=== PATIENT | male | born 1955 | race Caucasian/White ===

== ENCOUNTER 2016-11-14 06:17 | Outpatient (CLI) | payer BC ==
[~2016-11-14] VITALS: Ht 177.8 cm; Wt 85.9 kg
[2016-11-14 06:56] LABS: BASOPHILS 0.3 % (0-2); EOSINOPHILS 0.5 % (0-7); HEMATOCRIT 45.9 % (42.0-54.0); HEMOGLOBIN 16.4 g/dL (13.5-17.5); IMMATURE GRANULOCYTES 0.1 % (0-5); LYMPHOCYTES 19.5 % (15-50); MCH 37.2 pg (26.0-34.0); MCHC 35.7 g/dL (31.0-37.0); MCV 104.1 fL (80.0-100.0); MEAN PLATELET VOLUME 11.3 fL (7.4-10.4); MONOCYTES 10.8 % (2-11); NEUTROPHILS 68.8 % (40-80); RBC 4.41 10x6/uL (4.20-6.10); RDW 12.6 % (11.5-14.5); WBC 7.5 10x3/uL (4.8-10.8)
[2016-11-14 07:09] LABS: PLATELET COUNT 68 10x3/uL (130-400)
[2016-11-14] MEDS ORDERED: ZYLOPRIM100 MG PO (07:12)
[2016-11-14] MEDS ORDERED: MELATONIN10 M1 PO (07:13)
[2016-11-14] MEDS ORDERED: CHILDREN'S12.5 MG/3 PO (07:13)
[2016-11-14 07:22] VITALS: BP 132/87; Ht 177.8 cm; Wt 85.9 kg
[2016-11-14 07:30] LABS: APTT 29.2 SECONDS (22.8-39.4); INR 1.11 (0.85-1.17); PROTIME 14.2 SECONDS (11.6-15.0)
[2016-11-14 07:41] LABS: ANION GAP 12.5 mmol/L (8-16); CALCIUM 9.9 mg/dL (8.5-10.1); CARBON DIOXIDE 27.9 mmol/L (21.0-32.0); CREATININE - SERUM 1.1 mg/dL (0.6-1.3); POTASSIUM - SERUM 3.4 mmol/L (3.5-5.1)
[2016-11-14 08:22] LABS: PLATELET ESTIMATE DECREASED
--- NOTE | 2016-11-14 11:05 | NUR ---
1015 IV DC WITH CATHER TIP INTACT VS TAKEN AND PLACED ON POSTOP SHEET
== END 2016-11-14 10:30 | disposition home or self-care (01) ==
LOC: D.OPS 06:17 → D.CT 09:00 → D.OPS 09:00
PROVIDERS: General Practice
DX: D69.6 Thrombocytopenia, unspecified (principal)